=== PATIENT | female | born 2000 | race Hispanic/Latino ===

== ENCOUNTER 2019-04-29 22:01 | Emergency (ER) | payer SELFPAY ==
[2019-04-29] MEDS ORDERED: Ketorolac Tromethamine 60 MG/2 ML VIAL ONE (22:36)
--- NOTE | 2019-04-29 23:18 | ULT ---
TRANSVAGINAL PELVIC ULTRASOUND WITH EUGENE SCALE, COLOR FLOW AND SPECTRAL DOPPLER IMAGIN04/29/19 HISTORY: 18=year=old female with pelvic pain. FINDINGS: The uterus measures 8.3 x 3.9 x 4.4 cm without focal mass or endometrial fluid. The endometrium michelle ures 6 mm in thickness. The right ovary measures 3 x 2.4 x 2.6 cm and the left ovary measures 3.9 x 1.9 x 2.7 cm. No adnexal mass or free fluid in the cul-de-sac is seen. There are small Nabothian cysts. Flow is demonstrated t o both ovaries. IMPRESSION: Unremarkable exam. POS: OFF
== END 2019-04-29 23:28 | disposition home or self-care (01) ==
LOC: ERS 22:01
DX: R10.30 Lower abdominal pain, unspecified (principal)
CPT/HCPCS: 76856; 93976; 96374; J1885

== ENCOUNTER 2021-07-22 17:00 | Emergency (ER) | payer OTHER, SELFPAY ==
[2021-07-22 18:41] LABS: Bilirubin Negative (Negative); Blood, Urine Negative (Negative); Clarity Clear (Clear); Glucose, Urine (Dipstick) Normal (Negative); Ketone, Urine Trace mg/dL (Negative); Leukocyte Negative Leu/uL (Negative); Nitrite Negative (Negative); Protein, Urine (Dipstick) Negative (Neg-Trace); Specific Gravity, Urine 1.025 (1.002-1.036); Urobilinogen Normal mg/dL (Less than 2)
[2021-07-22 18:46] LABS: Pregnancy Test - Urine (BHCG) Negative (Negative); Pregu Control Background? CLEAR/WHITE (CLR/WHITE); Pregu Control Bar Appear? YES (CONTROL BAR); Specific Gravity 1.025 (1.002-1.036)
== END 2021-07-22 19:25 | disposition home or self-care (01) ==
LOC: ERS 17:00
DX: S39.011A Strain of muscle, fascia and tendon of abdomen, initial encounter (principal); X50.0XXA Overexertion from strenuous movement or load, initial encounter; Y92.511 Restaurant or cafe as the place of occurrence of the external cause
CPT/HCPCS: 81003; 81025; 99284

== ENCOUNTER 2023-12-20 12:36 | Outpatient (CLI) | payer SELFPAY | END 2023-12-20 12:37 | disposition home or self-care (01) | LOC: BICULT 12:36 | PROVIDERS: ATTEND Family Medicine | DX: N92.6 Irregular menstruation, unspecified (principal); R73.03 Prediabetes; E66.01 Morbid (severe) obesity due to excess calories; Z68.42 Body mass index [BMI] 45.0-49.9, adult | CPT/HCPCS: 76856 ==